=== PATIENT | male | born 1985 | race Caucasian/White ===

== ENCOUNTER → 2024-11-29 07:12 | Outpatient (REF) | payer OTHER, SELFPAY | LOC: PAVMRI 07:12 | PROVIDERS: ATTENDING PHYSICIAN Physician Assistant Surgical | DX: M54.12 Radiculopathy, cervical region (principal); M50.20 Other cervical disc displacement, unspecified cervical region; M54.2 Cervicalgia | CPT/HCPCS: 72141 ==

== ENCOUNTER 2025-01-31 17:48 | Emergency (ER) | payer OTHER, SELFPAY ==
[2025-01-31 17:49] VITALS: BP 145/87
[2025-01-31 18:29] VITALS: BP 140/85; BMI 31.4
[2025-01-31 18:48] LABS: Hematocrit 45.9 % (39.0-52.0); Hemoglobin 15.7 g/dL (13.0-18.0); Mean Corp Hgb Conc. 34.2 g/dL (33.0-37.0); Mean Corpuscular Volume 86.3 fL (80.0-94.0); Nucleated Red Blood Cells % 0 % (-); Platelet Count 214 10^3/uL (130-400); Red Cell Dist. Width 11.9 % (11.5-14.5)
[2025-01-31 19:00] VITALS: BP 124/79
[2025-01-31 19:03] LABS: ALT (SGPT) 31 U/L (0-50); AST (SGOT) 28 U/L (17-59); Albumin 4.5 g/dl (3.5-5.0); Alkaline Phosphatase 44 U/L (38-126); Blood Urea Nitrogen 19 mg/dl (9-20); Calcium 9.7 mg/dl (8.4-10.2); Carbon Dioxide 27 mmol/L (22-30); Chloride 107 mmol/L (98-107); Estimated Creatinine Clearance > 125 ml/min; Glucose 108 mg/dl (70-99); Potassium 4.9 mmol/L (3.5-5.1); Sodium 139 mmol/L (135-145); Total Protein 7.6 g/dl (6.3-8.2); eGFR > 60.00
[2025-01-31 19:13] LABS: Troponin I < 0.012 ng/ml
--- NOTE | 2025-01-31 19:54 | ED.GENMED ---
History of Present Illness
General
Chief Complaint: Visual Problem
Source: patient
Exam Limitations: none
Time Seen by Provider: 01/31/25 19:11
History of Present Illness
History of Present Illness:
39-year-old male describing blurry vision for 1 day. Patient had C6-C7 fusion done 2 days ago. The symptoms started 1 day ago. Initially felt it was secondary to medications. He stopped his muscle relaxer and opioid pain medication. However
symptoms have persisted. They have not progressed but they have not resolved. No headache no extremity numbness tingling or weakness. No gait issues no speech issues. No double vision. More describes it is blurry vision that is better at a
distance. When he is near he said it will sometimes appear almost like 3-dimensional on a screen. However not describing vertical horizontal double vision
Past History
Past History
ED Past Medical History: Other (Pneumonia, kidney stones, psoriatic arthritis)
ED Past Surgical History: Orthopedic and Other
Social History
Tobacco: Former smoker
Alcohol: None
Drug: None
Personal:
Living: with family
Review of Systems
Review of Systems
All Other Systems: Not applicable
Neurological: Denies dizzy, headache, weakness or numbness
Phy Exam
Physical Exam
Physical Exam:
GENERAL: Alert and oriented in no apparent distress
EYE: Orbits normal. Extraocular muscles intact. Orbits normal. Pupils equal round and reactive to light. Patient can clearly see my name badge at a distance of about 2 feet. States when it gets closer is slightly blurry.
NECK: Postoperative bandage to the anterior neck. Self splinting
ENT: Pharynx without erythema. No drooling or stridor speech normal
CARDIAC: Regular rate and rhythm without any obvious murmurs.
LUNGS: Clear breath sounds,normal
ABDOMEN: Soft, without focal tenderness or distention
NEUROLOGICAL: Alert and oriented , grossly non-focal. Cranial nerves II through XII intact. No nystagmus. Speech normal.
SKIN: Warm and dry
PSYCH: Normal and appropriate interaction.
Course
Orders/Labs/Results
Orders:
Orders
01/31/25 18:41
Complete Blood Count/With Diff Urgent
Comprehensive Metabolic Panel Urgent
Troponin I Urgent
01/31/25 19:24
CT Head & Neck Angio W/wo IV Urgent
Comment:
Reason For Exam: Blurred/double vision. Recent cervical fusion
01/31/25 20:27
Acetaminophen [Tylenol] 1,000 mg .ROUTE .STK-MED ONE
01/31/25 20:38
Acetaminophen [Tylenol] 1,000 mg PO NOW STA
Abnormal Lab Results
01/31/25
18:41
Absolute Neuts (auto) 8.0 H 10^3/uL
(1.4-6.5)
Absolute Monos (auto) 0.8 H 10^3/uL
(0.1-0.6)
Neutrophils % 78.2 H %
(42.2-75.2)
Lymphocytes % 13.2 L %
(20.5-51.1)
Glucose 108 H mg/dl
(70-99)
01/31/25 18:41
01/31/25 18:41
Vital Signs
Initial and Last Documented VS:
Initial Vital Signs
Temp Pulse Resp BP Pulse Ox
97.7 F 94 16 145/87 96
01/31/25 17:49 01/31/25 17:49 01/31/25 17:49 01/31/25 17:49 01/31/25 17:49
Last Documented Vital Signs
Temp Pulse Resp BP Pulse Ox
97.7 F 71 20 127/79 96
01/31/25 17:49 01/31/25 21:15 01/31/25 21:15 01/31/25 21:00 01/31/25 21:15
MDM/Problems Addressed
Differential Diagnosis Includes:
Patient describing vague blurry vision to both eyes. This is bilateral. No other acute neurologic symptoms. Possibly medication related. With some research there has been very rarely postoperative eye issues related to cervical fusion surgery
although very unlikely. These been to be more 1 eye versus both eyes. Extraocular muscles are normal. Will get CT angio for completeness. I did try to get hold of [facility] spine surgery and they stated no one was available were covering this
weekend.
*Radiology
Radiology exam reviewed: radiology read reviewed (No acute findings. Short segment right proximal vertebral artery is obscured postsurgical changes with some edema and gas at the surgical site all consistent)
*Pulse Oximetry
SaO2: 94
Oxygen Mode of Delivery: Room air
Patient hypoxic: no
*Critical Care Note
Total Time (30-74mins, 75-104mins- exclusive of procedures): Not Applicable
Update Note
Update Note:
Patient has remained medically stable and nontoxic. I do not find an acute issue. No indication for admission. I feel it is likely okay for the hand to take the narcotic but stay away from the muscle relaxer and close follow-up
ED Attending Note
-
Portions of this chart may have been created with voice recognition software.� Occasional wrong word or��sound alike� substitutions may have occurred due to the inherent limitations of voice recognition software.
Discharge Plan
Departure
Patient Disposition: Home (Routine Discharge)
Date of Disposition: 01/31/25
Time of Disposition: 21:28
Patient with high blood pressure during this ER visit?: Yes
Discharge Problem:
Postoperative visual changes
Instructions: BLOOD PRESSURE
Prescriptions:
No Action
prednisone 20 MG tablet
20 mg PO DAILY
methotrexate sodium 2.5 MG tablet
20 mg PO WEEKLY
folic acid 1 MG tablet
1 mg PO DAILY
Referrals:
UNKNOWN - PT DOES,NOT KNOW [Family Provider]
Activity Restrictions/Additional Instructions:
It is okay to take your narcotic pain medication
Call your spine surgeon first thing Sunday morning for close follow-up
Get rechecked sooner with increased visual issues, double vision, unusual headache, any other neurologic symptoms or any issues directly related to the surgery including increased neck pain swelling fever etc.
Interventions
Interventions:
*General Assessment Last Done: 01/31/25 18:29
*ED- Fall Risk Assessment Last Done: 01/31/25 18:29
*ED COVID-19 Vaccine History Last Done: 01/31/25 18:29
ED-EENT Assessment Last Done: 01/31/25 18:31
ED- Neurological Assessment Last Done: 01/31/25 18:31
ED-Skin Assessment Last Done: 01/31/25 18:31
ED Swallowing Screen Last Done: 01/31/25 19:07
Discharge Date and Time
Print Language: YI
[2025-01-31] MEDS: TYLENOL 1000 MG PO (20:38)
[2025-01-31 21:00] VITALS: BP 127/79
== END 2025-01-31 21:56 | disposition home or self-care (01) ==
LOC: EMR 17:48
PROVIDERS: EMERGENCY PHYSICIAN Emergency Medicine
DX: H53.8 Other visual disturbances (principal); L40.50 Arthropathic psoriasis, unspecified; Z87.442 Personal history of urinary calculi; Z87.891 Personal history of nicotine dependence; Z98.1 Arthrodesis status
CPT/HCPCS: 99284; 70496; 70498; 80053; 84484; 85025; Q9967

== ENCOUNTER → 2025-06-01 16:13 | Outpatient (REF) | payer OTHER, SELFPAY | LOC: PAVMRI 16:13 | PROVIDERS: ATTENDING PHYSICIAN Orthopaedic Surgery; FAMILY PHYSICIAN Nurse Practitioner Family | DX: M54.12 Radiculopathy, cervical region (principal) | CPT/HCPCS: 70030; 72141 ==